=== PATIENT | female | born 1945 ===

== ENCOUNTER 2021-06-29 00:27 | Inpatient (IN) | payer MEDICARE, OTHER ==
[2021-06-25 13:51] VITALS: BP 112/50
[2021-06-29] VITALS (7 sets, daily range): BP systolic 104–148; BP diastolic 47–90
[~2021-06-29] VITALS: Ht 149.8 cm; Wt 54.4 kg
[~2021-06-29 00:27] MED LIST: ATENOLOL25 MG PO; CALCIUM + VITA1 EAC2 PO; HYDROCHLOROTH12.5 M3 PO; HYDROCODONE-AC1 EACH PO; LEVOTHYROXINE75 MC1 PO; PROTONIX40 MG PO; SIMVASTATIN20 MG PO; VITAMIN D31250 MC1 PO
[2021-06-30] VITALS: BP 140/53
[2021-06-30 06:39] LABS: BASO % 0.2 % (0.0-1.0); EOS % 0.1 % (1.0-4.0); HEMATOCRIT 31.1 % (37.0-47.0); LYMPH # 0.9 10*3/uL (1.3-4.4); LYMPH % 10.1 % (27.0-41.0); MEAN CELL VOLUME 92.8 fl (81.0-99.0); MEAN CORPUSCULAR HGB 30.1 pg (27.0-31.0); MEAN CORPUSCULAR HGB CONC 32.5 g/dl (33.0-37.0); MEAN PLATELET VOLUME 9.8 fl (9.6-12.3); MONO # 0.9 10*3/uL (0.1-1.0); MONO % 10.4 % (3.0-9.0); NEUT % 78.6 % (47.0-73.0); PLATELET COUNT AUTOMATED 181 10*3/uL (130-400); RED BLOOD COUNT 3.35 10*6/uL (4.10-5.10); RED CELL DISTRI WIDTH 12.6 % (0-14.5); WHITE BLOOD COUNT 8.9 10*3/uL (4.8-10.8)
[2021-06-30 06:52] LABS: ALBUMIN 2.7 gm/dl (3.1-4.5); ALKALINE PHOSPHATASE 51 U/L (45-117); BUN 18 mg/dl (7-24); CHLORIDE 108 mmol/L (98-107); CHOLESTEROL 123 mg/dL (<200); CREATININE 0.63 mg/dL (0.55-1.02); FREE T4 1.31 ng/dl (0.76-1.46); LDL CHOLESTEROL 53 mg/dL (9-159); POTASSIUM 3.6 mmol/L (3.5-5.1); SGOT/AST 16 IU/L (3-35); SGPT/ALT 13 U/L (12-78); SODIUM 140 mmol/L (136-145); TOTAL PROTEIN 6.3 gm/dL (6.4-8.2); TRIGLYCERIDES 83 mg/dl (<150)
[2021-06-30 06:56] LABS: THYROID STIM HORMONE (HS) 0.065 uIU/ml (0.358-4.75)
[2021-06-30 07:31] LABS: VITAMIN D, 25-HYDROXY 29.7 ng/mL (30-100)
[2021-06-30 08:00] VITALS: BP 146/74
[2021-06-30 12:00] VITALS: BP 114/88
[2021-06-30 16:00] VITALS: BP 137/70
[2021-06-30 20:00] VITALS: BP 124/54
[2021-07-01] VITALS: BP 127/69
[2021-07-01 06:35] LABS: BASO % 0.2 % (0.0-1.0); EOS % 0.3 % (1.0-4.0); HEMATOCRIT 32.4 % (37.0-47.0); LYMPH # 1.2 10*3/uL (1.3-4.4); LYMPH % 10.3 % (27.0-41.0); MEAN CELL VOLUME 93.4 fl (81.0-99.0); MEAN CORPUSCULAR HGB 29.4 pg (27.0-31.0); MEAN CORPUSCULAR HGB CONC 31.5 g/dl (33.0-37.0); MONO # 0.8 10*3/uL (0.1-1.0); MONO % 6.8 % (3.0-9.0); NEUT # 9.1 10*3/uL (2.3-7.9); PLATELET COUNT AUTOMATED 200 10*3/uL (130-400); RED BLOOD COUNT 3.47 10*6/uL (4.10-5.10); RED CELL DISTRI WIDTH 12.9 % (0-14.5); WHITE BLOOD COUNT 11.1 10*3/uL (4.8-10.8)
[2021-07-01 06:43] LABS: BUN 13 mg/dl (7-24); CHLORIDE 103 mmol/L (98-107); CREATININE 0.67 mg/dL (0.55-1.02); POTASSIUM 3.6 mmol/L (3.5-5.1); SODIUM 138 mmol/L (136-145)
[2021-07-01 08:00] VITALS: BP 144/51
[2021-07-01 12:00] VITALS: BP 110/50
[2021-07-01 16:00] VITALS: BP 136/75
[2021-07-01 20:00] VITALS: BP 110/73
[2021-07-02] VITALS: BP 101/61
[2021-07-02 06:39] LABS: BASO % 0.3 % (0.0-1.0); EOS # 0.1 10*3/uL (0.0-0.4); EOS % 1.2 % (1.0-4.0); HEMATOCRIT 32.2 % (37.0-47.0); LYMPH # 1.5 10*3/uL (1.3-4.4); LYMPH % 16.3 % (27.0-41.0); MEAN CELL VOLUME 94.4 fl (81.0-99.0); MEAN CORPUSCULAR HGB 29.9 pg (27.0-31.0); MEAN CORPUSCULAR HGB CONC 31.7 g/dl (33.0-37.0); MEAN PLATELET VOLUME 10.1 fl (9.6-12.3); MONO # 0.8 10*3/uL (0.1-1.0); MONO % 9.1 % (3.0-9.0); NEUT # 6.7 10*3/uL (2.3-7.9); NEUT % 72.7 % (47.0-73.0); PLATELET COUNT AUTOMATED 206 10*3/uL (130-400); RED BLOOD COUNT 3.41 10*6/uL (4.10-5.10); RED CELL DISTRI WIDTH 12.8 % (0-14.5); WHITE BLOOD COUNT 9.3 10*3/uL (4.8-10.8)
[2021-07-02 06:49] LABS: ALBUMIN 2.6 gm/dl (3.1-4.5); ALKALINE PHOSPHATASE 66 U/L (45-117); BUN 15 mg/dl (7-24); CHLORIDE 104 mmol/L (98-107); CREATININE 0.71 mg/dL (0.55-1.02); POTASSIUM 3.7 mmol/L (3.5-5.1); SGOT/AST 23 IU/L (3-35); SGPT/ALT 19 U/L (12-78); SODIUM 136 mmol/L (136-145); TOTAL PROTEIN 7.1 gm/dL (6.4-8.2)
[2021-07-02 08:00] VITALS: BP 100/70
[2021-07-02] MEDS ORDERED: HYDROCODONE-AC1 EAC2 PO (09:19)
[2021-07-02] MEDS ORDERED: ASPIRIN ADULT L81 M2 PO (09:19)
[2021-07-02 12:00] VITALS: BP 106/57
== END 2021-07-02 13:50 | DRG 469 ==
LOC: SDC 00:27 → 5E 07:16 → SDC 07:30 → 5E 13:49
PROVIDERS: Internal Medicine; Orthopaedic Surgery; Registered Nurse; ADMIT Family Medicine; ATTEND Family Medicine
PROC: 0SRC0J9 Replacement of Right Knee Joint with Synthetic Substitute, Cemented, Open Approach (ICD-10-PCS; principal; 2021-06-29)
PROC: 3E0T3BZ Introduction of Anesthetic Agent into Peripheral Nerves and Plexi, Percutaneous Approach (ICD-10-PCS; 2021-06-29)
DX: M17.11 Unilateral primary osteoarthritis, right knee (principal); E43 Unspecified severe protein-calorie malnutrition; R17 Unspecified jaundice; I10 Essential (primary) hypertension; E03.9 Hypothyroidism, unspecified; Z20.822 Contact with and (suspected) exposure to COVID-19; E78.2 Mixed hyperlipidemia; E55.9 Vitamin D deficiency, unspecified; M21.061 Valgus deformity, not elsewhere classified, right knee; D50.9 Iron deficiency anemia, unspecified; R74.01 Elevation of levels of liver transaminase levels; K21.9 Gastro-esophageal reflux disease without esophagitis; Z90.710 Acquired absence of both cervix and uterus; Z79.1 Long term (current) use of non-steroidal anti-inflammatories (NSAID); Z79.899 Other long term (current) drug therapy; Z68.24 Body mass index [BMI] 24.0-24.9, adult

== ENCOUNTER → 2021-07-16 | Outpatient (CLI) | payer MEDICARE, OTHER ==
[~2021-07-16] MED LIST changes: +ASPIRIN ADULT L81 M2 PO; +HYDROCODONE-AC1 EAC2 PO
== END | disposition home or self-care (01) ==
LOC: ORTHO 00:28
PROVIDERS: ATTEND Orthopaedic Surgery
DX: Z47.1 Aftercare following joint replacement surgery (principal); M17.11 Unilateral primary osteoarthritis, right knee; Z96.651 Presence of right artificial knee joint

== ENCOUNTER → 2021-08-16 | Outpatient (CLI) | payer MEDICARE, OTHER | END | disposition home or self-care (01) | LOC: ORTHO 00:24 | PROVIDERS: ATTEND Orthopaedic Surgery | DX: Z47.1 Aftercare following joint replacement surgery (principal); M17.11 Unilateral primary osteoarthritis, right knee; Z96.651 Presence of right artificial knee joint ==

== ENCOUNTER → 2021-10-25 | Outpatient (CLI) | payer MEDICARE, OTHER | END | disposition home or self-care (01) | LOC: ORTHO 00:17 | PROVIDERS: ATTEND Orthopaedic Surgery | DX: M25.561 Pain in right knee (principal); Z96.651 Presence of right artificial knee joint ==